=== PATIENT | male | born 1995 | race Caucasian/White ===

== ENCOUNTER 2018-11-27 22:15 | Emergency (ER) | payer OTHER, SELFPAY ==
[2018-11-27 22:25] VITALS: BP 153/87; PULSE 101; RESP 14; TEMP 36.3; O2SAT 96; BMI 21.9
--- NOTE | 2018-11-27 22:29 | DI.RAD.S_ITS ---
PROCEDURE: XR FOOT LT MIN 3V INDICATIONS: left foot crush injury TECHNIQUE: 3 views of the foot were acquired. COMPARISON: None. FINDINGS: Bones: There is a minimally displaced comminuted fracture through the second and third distal phalanxes. No visualized intra-articular extension. Soft tissues: No tibiotalar joint effusion. Achilles tendon appears normal. IMPRESSION: Minimally displaced second and third distal phalanx fractures. Dictated by: Mery Byrne M.D. on 11/28/2018 at 9:41 Approved by: Mery Byrne M.D. on 11/28/2018 at 9:42
--- NOTE | 2018-11-27 22:40 | PC.NURSE ---
pt reports a rolling flatbed trailer rolled over his foot. He states it's very heavy and motioned the size of the wheel at about 10inches made of solid steel like a morro.
--- NOTE | 2018-11-27 23:10 | DI.CT.S_ITS ---
PROCEDURE: CT LE LT W CON INDICATIONS: severe crush to L foot, 1st/2nd cuneiform? TECHNIQUE: Noncontrast 1-1.5 mm axial sections acquired from above the tibiotalar joint to the bottom of the calcaneus, with coronal and sagittal reformats. COMPARISON: [facility], [facility], XR FOOT LT MIN 3V, 11/27/2018, 22:29. FINDINGS: Image quality: Excellent. No visualized fracture or dislocation. No visualized foreign bodies. There is good anatomic alignment. Soft tissues are unremarkable. IMPRESSION: No visualized fracture. The above findings are concordant with preliminary report. Dictated by: Mery Byrne M.D. on 11/28/2018 at 8:50 Approved by: Mery Byrne M.D. on 11/28/2018 at 8:51
--- NOTE | 2018-11-28 00:44 | PC.NURSE ---
size large ortho shoe fitted to left foot. Pt reports feeling OK with it on. cms in tact.
[2018-11-28 00:45] VITALS: BP 118/72; PULSE 81; RESP 14; O2SAT 99
--- NOTE | 2018-11-28 04:44 | ED_ITS ---
HPI - Extremity Injury (Lower) General Chief Complaint: Extremity Injury, Lower Stated Complaint: thinks he broke his left foot Time Seen by Provider: 11/27/18 22:20 Source: patient Mode of arrival: wheelchair Limitations: no limitations History of Present Illness HPI Narrative: A 23-year-old male nonsmoker, otherwise healthy with current tetanus presents with left foot injury suffered while at work. They were tr ansporting heavy objects on a large heavy tray on steel wheels. He is wearing heavy work boots and the toes of his left foot were run over by this tray. He denies other injury and is otherwise well and free of complaint. He has increasing pain with ambulation and improvement with rest. He denies any numbness, tingling or weakness. He has very minimal bleeding from abrasions on the tips of the toes of his foot but no swelling on the instep MD complaint: foot injury Onset (ago): minute(s) Type of Injury: blunt Place: work Severity: moderate Relieving factors: rest Exacerbating factors: weight bearing Context: direct blow Associated symptoms: able to partially bear weight Other symptoms: none Treatments prior to arrival: cold therapy Related Data Previous Rx's Medication Instructions Recorded cephalexin [Keflex] 500 mg PO QID 7 Days #28 cap 11/28/18 Allergies Allergy/AdvReac Type Severity Reaction Status Date / Time No Known Drug Allergies Allergy Verified 11/27/18 22:25 Review of Systems Constitutional Denies chills, Denies fever(s), Denies lethargy and Denies weakness Eyes Denies change in vision, Denies eye discharge, Denies irritation and Denies loss of vision ENT Ears, Nose, Mouth, and Throat: Denies change in voice, Denies neck pain and Denies sore throat Cardiovascular Denies chest pain, Denies irregular heart rhythm, Denies lightheadedness, Denies palpitations, Denies dyspnea, Denies dyspnea on exertion and Denies orthopnea Respiratory Denies cough, Denies dyspnea, Denies dyspnea on exertion and Denies wheezing Gastrointestinal Gastrointestinal: Denies abdominal pain, Denies change in bowel habits, Denies diarrhea, Denies nausea and Denies vomiting Genitourinary Denies hematuria, Denies flank pain, Denies urinary incontinence and Denies urinary urgency Musculoskeletal Reports joint swelling, Reports limited range of motion and Denies neck pain Integumentary/Breasts Denies pruritus, Denies erythema, Denies rash and Denies wounds Neurologic Denies confusion, Denies loss of vision and Denies weakness Psychiatric Denies anxiety, Denies confusion, Denies depression, Denies homicidal ideation and Denies suicidal ideation Endocrine Denies palpitations Hematologic/Lymphatic Denies easy bruising Allergic/Immunologic Denies wheezing PFSH Social History Smoking Status: Unknown if ever smoked Social History Smoking Status: Unknown if ever smoked Exam Narrative Exam Narrative: GENERAL: 23-year-old male, alert and oriented, mild acute distress, GCS 15 HEAD: Atraumatic. Normocephalic. No temporal or scalp tenderness. EYES: Pupils equal round and reactive. Extraocular motions intact. No scleral icterus. No injection or drainage. ENT: Nose without bleeding, purulent drainage or septal hematoma. Throat without erythema, tonsillar hypertrophy or exudate. Uvula midline. Airway patent. NECK: Trachea midline. No JVD or lymphadenopathy. Supple, nontender, no meningeal signs. CARDIOVASCULAR: Regular rate and rhythm without murmurs, gallops, or rubs. RESPIRATORY: Clear to auscultation. Breath sounds equal bilaterally. No wheezes, rales, or rhonchi. GASTROINTESTINAL: Abdomen soft, non-tender, nondistended. No hepato- splenomegaly, or palpable masses. No guarding. EXTREMITIES: 1st 2nd and 3rd toes of left foot are painful to palpation, particularly with any range of motion. There is a small abrasion on the medial aspect of the 2nd toe but no laceration that can be repaired. Very small, mild subungual hematoma developing on right great toe. No pain along the instep or q.day forms. No pain along 5th metatarsal or in ankle. BACK: Nontender without deformity or crepitance. No flank tenderness. NEURO: AOx3. SKIN: No rash or erythema. Initial Vital Signs Initial Vital Signs: Vital Signs Temperature 97.4 F L 11/27/18 22:25 Pulse Rate 101 H 11/27/18 22:25 Respiratory Rate 14 11/27/18 22:25 Blood Pressure 153/87 H 11/27/18 22:25 Pulse Oximetry 96 11/27/18 22:25 Procedures Orthopedic Splinting/Casting Injury #1: Side: left Lower Extremity Injury Location: foot Lower Extremity Immobilizer: post-op shoe Post splinting neuro exam: intact Post splinting vascular exam: intact Placed by: Nursing Course Orders Ordered: ED Orders 11/27/18 22:29 XR foot LT min 3V Stat 11/27/18 23:10 CT LE LT wo con Stat Reevaluation(s) Reevaluation #1: A few tests fractures noted on the foot but CT ordered given mechanism of injury potential for occult fracture. Vital Signs - 8 hr 11/27/18 22:25 11/28/18 00:45 Temperature 97.4 F L Pulse Rate 101 H 81 Respiratory Rate 14 14 Blood Pressure 153/87 H 118/72 Pulse Oximetry 96 99 Discharge Plan Departure Patient Disposition: Home Clinical Impression: Fracture of toe Qualifiers: Encounter type: initial encounter Toe: lesser toe Fracture type: closed Phalanx: distal Fracture alignment: nondisplaced Laterality: left Qualified Code(s): S92.535A - Nondisplaced fracture of distal phalanx of left lesser toe(s), initial encounter for closed fracture Discharge Date/Time: 11/28/18 00:46 Interventions: ED Discharge Assessment Last Done: 11/28/18 00:45 Instructions: DI for Toe Fracture Activity Restrictions/Additional Instructions: *You have been diagnosed with [ toe fractures of 3rd and 4th toe on left foot ] *What to do: *Take medications as directed *Follow up with your primary care provider in 2-3 days, call for an appointment. Let them know you were seen in the Emergency Department and that we ask that you be seen in follow up *Return to ER if you should have any new, worsening or concerning symptoms Prescriptions: New cephalexin [Keflex] 500 mg capsule 500 mg PO QID 7 Days Qty: 28 RF: 0 Stand Alone Forms: Work Release Note
== END 2018-11-28 00:46 | disposition home or self-care (01) ==
PROVIDERS: Emergency Provider Emergency Medicine
DX: S92.535A Nondisplaced fracture of distal phalanx of left lesser toe(s), initial encounter for closed fracture (principal); W23.0XXA Caught, crushed, jammed, or pinched between moving objects, initial encounter; Y99.0 Civilian activity done for income or pay
CPT/HCPCS: 73630; 73700; 99282; 99284